=== PATIENT | female | born 1980 | race Caucasian/White ===

== ENCOUNTER 2016-07-03 20:18 | Emergency (ER) | payer OTHER ==
[~2016-07-03] VITALS: Ht 160 cm; Wt 81.6 kg
[~2016-07-03 20:18] MED LIST: TRIAMTERENE AND1 CAP PO
[2016-07-03 20:32] VITALS: BP 144/97
--- NOTE | 2016-07-03 23:00 | NUR ---
PATIENT PRESENTS TO ED WITH rt foot/ankle pain . PT DENIES N/V/D; SKIN IS PINK/WARM/DRY; AAOX4 WITH EVEN AND STEADY GAIT; LUNGS CLEAR BL; HR EVEN AND REGULAR; PT DENIES ANY FEVER, CP, SOB, OR COUGH AT THIS TIME; PATIENT STATES PAIN OF 7/10 AT THIS TIME; VSS; PATIENT POSITIONED FOR COMFORT; HOB ELEVATED; BEDRAILS UP X2; BED DOWN. ER MD MADE AWARE OF PT STATUS.
--- NOTE | 2016-07-03 23:03 | NUR ---
Joesph bond in [facility] - 07/03/16 at 2331 by MEDDM TO ER BED 8
[2016-07-03 23:27] VITALS: BP 144/97
--- NOTE | 2016-07-03 23:27 | NUR ---
Patient discharged with v/s stable. Written and verbal after care instructions given and explained. Patient alert, oriented and verbalized understanding of instructions. Ambulatory with steady gait. All questions addressed prior to discharge. ID band removed. Patient advised to follow up with PMD. Rx of motrin and norco given. Patient educated on indication of medication including possible reaction and side effects. Opportunity to ask questions provided and answered. crutch training provided.
== END 2016-07-03 23:27 | disposition home or self-care (01) ==
LOC: MED 20:18
DX: S93.491A Sprain of other ligament of right ankle, initial encounter (principal); I10 Essential (primary) hypertension; Z88.8 Allergy status to other drugs, medicaments and biological substances; Z90.49 Acquired absence of other specified parts of digestive tract; W18.42XA Slipping, tripping and stumbling without falling due to stepping into hole or opening, initial encounter; Y93.89 Activity, other specified; Y92.89 Other specified places as the place of occurrence of the external cause; Y99.8 Other external cause status

== ENCOUNTER 2017-09-29 00:13 | Emergency (ER) | payer OTHER ==
[~2017-09-29] VITALS: Ht 162.6 cm; Wt 86.2 kg
[~2017-09-29 00:13] MED LIST changes: +HYDR-3639 PO; -TRIAMTERENE AND1 CAP PO
[2017-09-29 00:24] VITALS: BP 150/76
--- NOTE | 2017-09-29 00:26 | NUR ---
TO LOBBY A/W BED, XRAY CHEST,AMB, VSS, ERMD NOTED
--- NOTE | 2017-09-29 00:30 | NUR ---
PT CAME IN TO ER WITH C/O COUGH. PT STATES SHE COUGHS SO MUCH SHE HAS N/V. LUNG SOUND ARE CLEAR BILATERAL HX MED. HTN. DENIES DIARRHEA; SKIN IS PINK/WARM/DRY; AAOX4 WITH EVEN AND STEADY GAIT; HR EVEN AND REGULAR; PT DENIES ANY FEVER, CP, SOB, AT THIS TIME; PATIENT STATES PAIN OF 0/10 AT THIS TIME; VSS; PATIENT POSITIONED FOR COMFORT; HOB ELEVATED; BEDRAILS UP X2; BED DOWN. ER MD MADE AWARE OF PT STATUS.
--- NOTE | 2017-09-29 01:18 | NUR ---
pt returned from xray to er bed 9 via wheel chair.
--- NOTE | 2017-09-29 01:33 | NUR ---
DR YAN AT BEDSIDE EVALUATING PT.
--- NOTE | 2017-09-29 02:00 | NUR ---
pt is resting in room, family at bedside.
[2017-09-29] MEDS ORDERED: DEXAMETHASONE 10 MG/ML VIAL IM ONE (02:40)
[2017-09-29 03:00] VITALS: BP 150/76
--- NOTE | 2017-09-29 03:00 | NUR ---
Patient discharged with v/s stable. Written and verbal after care instructions given and explained. Patient alert, oriented and verbalized understanding of instructions. Ambulatory with steady gait. All questions addressed prior to discharge. ID band removed. Patient advised to follow up with PMD. Rx of zithromax, prednisone, and mucinex were given. Patient educated on indication of medication including possible reaction and side effects. Opportunity to ask questions provided and answered.
== END 2017-09-29 03:00 | disposition home or self-care (01) ==
LOC: MED 00:13
DX: J40 Bronchitis, not specified as acute or chronic (principal); I10 Essential (primary) hypertension; Z79.899 Other long term (current) drug therapy; Z88.8 Allergy status to other drugs, medicaments and biological substances; Z91.041 Radiographic dye allergy status
CPT/HCPCS: 71045; 96372; 99283; J1100

== ENCOUNTER 2017-12-12 22:12 | Inpatient (IN) | payer OTHER ==
[~2017-12-12] VITALS: Ht 162.6 cm; Wt 96.6 kg
[2017-12-12 22:19] VITALS: BP 140/76
--- NOTE | 2017-12-12 22:19 | NUR ---
BIB WHEELCHAIR TO ER BED 7
[2017-12-12] MEDS ORDERED: NACL 0.9% 1,000 ML IV ONE (22:35)
[2017-12-12] MEDS ORDERED: MORPHINE SULFATE 4 MG/ML SYR IVP ONE (22:35)
[2017-12-12] MEDS ORDERED: ONDANSETRON 4 MG/2 ML VIAL IVP ONE (22:35)
--- NOTE | 2017-12-12 22:35 | NUR ---
PT PRESENTS TO ED WITH EPIGASTRIC CHEST PAIN WITH SOB X1 DAY. PT IS TACHY AT 117. CP 8/. PT IS A&OX4. LUNGS CLEAR BILAT. HEART EVEN AND REGULAR. RHYTHM IS SINUS TACHY. PT STATES NAUSEA WITHOUT VOMITING. POSITIONED IN BED WITH HOB ELEVATED. SIDE RAILS UP. ER MD AWARE. CONTINUE TO MONITOR.
[2017-12-12 23:32] LABS: HEMATOCRIT 43.2 % (36-48); HEMOGLOBIN 14.4 g/dL (12.0-16.0); MEAN CORPUSCULAR HEMOGLOBIN 28 pg (27-31); MEAN CORPUSCULAR HGB CONC 33 g/dL (33-37); MEAN CORPUSCULAR VOLUME 83.7 fL (80-94); PLATELET COUNT (AUTO) 328 K/uL (140-450); RED BLOOD CELL COUNT(AUTO) 5.16 MIL/uL (4.20-5.40)
[2017-12-12 23:43] LABS: ANION GAP 13.5 (8-16); CARBON DIOXIDE 26.9 mmol/L (21-32); CREATININE 0.9 mg/dL (0.6-1.3); POTASSIUM 3.4 mmol/L (3.5-5.1); WHITE BLOOD COUNT (AUTO) 20.5 K/uL (4.8-10.8)
[2017-12-12 23:44] LABS: LYMPHOCYTES % (MANUAL) 3 % (20-46); MONOCYTES % (MANUAL) 1 % (5-12)
[2017-12-12 23:49] LABS: ALBUMIN 3.8 g/dL (3.4-5.0); TOTAL BILIRUBIN 0.7 mg/dL (0.0-1.0)
[2017-12-12] MEDS ORDERED: PIPERACILLIN/TAZOBACTAM 3.375 GM in DEXTROSE 5% 50 ML IV ONE (23:55)
[2017-12-12] MEDS ORDERED: VANCOMYCIN 1,000 MG in DEXTROSE 5% 250 ML IV ONE (23:55)
[2017-12-13] MEDS ORDERED: PIPERACILLIN/TAZOBACTAM 3.375 GM VIAL IV ONE ×2 (00:08→05:09)
--- NOTE | 2017-12-13 00:32 | NUR ---
REPORT GIVEN AND CARE TRANSFERED TO [facility] ROOM 121A. TRANSFERED VIA GURNEY WITH VSS.
[2017-12-13] MEDS ORDERED: NACL 0.9% 1,000 ML IV ONE ×2 (01:10)
[2017-12-13 01:45] LABS: APPEARANCE,URINE CLEAR (CLEAR); BILIRUBIN,URINE NEGATIVE (NEGATIVE); BLOOD, URINE NEGATIVE (NEGATIVE); COLOR,URINE YELLOW (YELLOW); LEUKOCYTE ESTERASE ,URINE NEGATIVE (NEGATIVE); NITRITE, URINE NEGATIVE (NEGATIVE); PH,URINE 7.5 (5.0-9.0); UGLUCOSE NEGATIVE (NEGATIVE)
[2017-12-13] MEDS ORDERED: VANCOMYCIN 1,000 MG VIAL ONE (02:26)
[2017-12-13] MEDS ORDERED: NACL 0.9% 1,000 ML IV SCH (02:43)
[2017-12-13] MEDS ORDERED: ONDANSETRON 4 MG/2 ML VIAL IVP PRN (02:45)
[2017-12-13] MEDS ORDERED: ACETAMINOPHEN 325 MG TAB PO PRN (02:45)
[2017-12-13 03:20] VITALS: BP 99/56
--- NOTE | 2017-12-13 03:20 | NUR ---
RECEIVED REPORT FROM ER NURSE SETH AT BEDSIDE FOR CONTINUITY OF CARE. PT BROUGHT IN BY RAND. PT IV NOTED RFA 22G. PT HAS NO SOB NO S/S OF DISTRESS ON RA. PT AMBULATORY. BED LOWERED PT ORIENTED TO ROOM CALL LIGHT WITHIN REACH WILL CONTINUE TO MONITOR.
--- NOTE | 2017-12-13 03:30 | NUR ---
SETH ER NURSE STATED TO ADD 2L NS ORDERED PER SEPSIS PROTOCOL. EDITED NS ORDERED TO 2L WIDE OPEN.
[2017-12-13] MEDS ORDERED: PIPERACILLIN/TAZOBACTAM 3.375 GM in DEXTROSE 5% 50 ML IV SCH (05:00)
--- NOTE | 2017-12-13 06:29 | NUR ---
PT SLEEPING DECREASED HER FLUIDS TO 100ML/HR. BECAUSE IV KEEPS BEEPING AND TO PREVENT VEIN RUPTURE. WILL ENDORSE
--- NOTE | 2017-12-13 07:19 | NUR ---
ENDORSED REPORT TO DAYSHIFT NURSE AT BEDSIDE FOR CONTINUITY OF CARE.
--- NOTE | 2017-12-13 07:20 | NUR ---
RECEIVED REPORT FROM PM NURSE AT TH BEDSIDE. PT ON STRICT I&O. IV SITE RT FA 22 G, IVF INFUSING AT 100 ML/HR. PT AOX4. AMBULATORY. NO SIGN OF DISTRESS. VS NOTED NORMAL. DENIES ANY PAIN. CALL LIGHT WITHIN REACH.INFORMED PT TO USE CALL LIGHT FRO ANY HELP. VERBALIZED UNDERSTANDING. WILL CONTINUE TO MONITOR PT.
[2017-12-13 07:46] LABS: HEMATOCRIT 40.7 % (36-48); HEMOGLOBIN 13.2 g/dL (12.0-16.0); MEAN CORPUSCULAR HEMOGLOBIN 27 pg (27-31); MEAN CORPUSCULAR HGB CONC 32 g/dL (33-37); PLATELET COUNT (AUTO) 367 K/uL (140-450); RED BLOOD CELL COUNT(AUTO) 4.84 MIL/uL (4.20-5.40); RED CELL DISTRIBUTION WIDTH 14.3 % (11.6-13.7); WHITE BLOOD COUNT (AUTO) 22.1 K/uL (4.8-10.8)
[2017-12-13 08:00] VITALS: BP 138/74
--- NOTE | 2017-12-13 08:46 | NUR ---
CHECKED ON PT. REFUSED LEVONOX. INFORMED THAT ITS BLOOD THINNER, USE FOR PREVENTION OF BLOOD CLOT WITH PT ON BEDREST. DENIES, STATES SHE IS AMBULATORY, ABLE TO WALK. NO SIGN OF DISTRESS. WILL CONTINUE TO MONITOR PT.
[2017-12-13] MEDS: ENOXAPARIN 40 MG/0.4 ML SYR SUBQ SCH (09:00)
--- NOTE | 2017-12-13 09:03 | NUR ---
PATIENT HAS BEEN SCREENED AND CATEGORIZED HIGH NUTRITION RISK. PATIENT WILL BE SEEN WITHIN 1-2 DAYS OF ADMISSION. 12/13/17 12/14/[address]
[2017-12-13 09:15] LABS: LYMPHOCYTES % (MANUAL) 6 % (20-46); MONOCYTES % (MANUAL) 7 % (5-12)
[2017-12-13 12:00] VITALS: BP 112/67
--- NOTE | 2017-12-13 12:07 | NUR ---
12/13/17 RD INITIAL ASSESSMENT COMPLETED PLEASE REFER TO NUTRITION ASSESSMENT UNDER CARE ACTIVITY FOR ESTIMATED NUTRITIONAL NEEDS. 1. RECOMMEND NA 2G DIET TOLERATED. 2. RECOMMEND HEALTH SHAKES WITH EVERY MEAL IF LOW APPETITE PERSISTS. 3. RD TO FOLLOW-UP 5-7 DAYS, LOW RISK ARIANE FENG, RD
--- NOTE | 2017-12-13 12:18 | NUR ---
CM NOTE ADMISSION CHART REVIEW DONE. INITIAL REVIEW FAXED TO [facility] [phone] CLAUDIA # [phone]
--- NOTE | 2017-12-13 12:20 | NUR ---
CHECKED ON PT. DR CASTILLO VISITED PT. PUT ORDER FOR STOOL SPECIMEN COLLECTION FOR WBC, LEUKOCYTES AND CULTURE. PT HAS NO BM YET. HAT AND SPECIMEN CUP IN RESTROOM. INFORMED P[T TO NOTIFY WHEN SHE GOES TO RESTROOM. CALL LIGHT WITHIN REACH. VS NORMAL NOTED. PT ON NPO FOR COMPLETE US OF ABDOMEN PER DR RIVERO ORDER. NO SIGN OF DISTRESS. WILL CONTINUE TO MONITOR PT.
[2017-12-13] MEDS: PIPER/TAZO 3.375GM/D5W PREMIX 50 ML IV SCH ×2 (12:30→20:37)
--- NOTE | 2017-12-13 15:00 | NUR ---
CHECKED ON PT. SLEEPING AT THIS TIME. NO SIGN ON OF DISTRESS. WILL CONTINUE TO MONITOR PT.
[2017-12-13 16:00] VITALS: BP 113/74
--- NOTE | 2017-12-13 16:30 | NUR ---
CHECKED ON PT. LYING ON HER BED. VS NORMAL. COMPLETE ABD US DONE. NO SIGN OF DISTRESS. PT ASKING FOR SNACKS. INFORMED THAT PT IS ON 2GM NA DIET. VERBALISED UNDERSTANDING. WILL CONTINUE TO MONITOR PT.
--- NOTE | 2017-12-13 18:00 | NUR ---
PT SLEEPING ON HER BED. NO SIGN OF DISTRESS. WILL CONTINUE TO MONITOR PT.
--- NOTE | 2017-12-13 19:25 | NUR ---
PT SLEEPING ON HER BED. ENDORSED TO PM NURSE. PT IN STABLE CONDITION.
--- NOTE | 2017-12-13 19:26 | NUR ---
RECEIVED BEDSIDE REPORT FROM DAY SHIFT NURSE SITAL RN, PT STABLE, NO DISTRESS NOTED, IV TO R FA 22G, PATENT , INTACT, SL, PT ON ROOM AIR, NO SOB, PT DENIES ANY PAIN AT THIS MOMENT, FAMILY AT BEDSIDE, INITIAL ASSESSMENT DONE, ALL SAFETY PRECAUTION MET, WILL CONTINUE TO MONITOR.
[2017-12-13 20:00] VITALS: BP 117/72
--- NOTE | 2017-12-13 20:10 | NUR ---
CALLED DR. PEOPLES REGARDING PT BLOOD CULTURE CAME BACK POSITIVE FOR ANAEROBIC GRAM NEGATIVE RODS. STATED UNDERSTANDING AND TO ORDER REPEAT BLOOD CULTURE X2. WILL PUT IN ORDERS AND CONTINUE WITH ORDERS. Addendum: 12/14/17 at 0308 by Shaniqua Grande RN ALSO NOTIFIED DR. PEOPLES REGARDING DR. CASTILLO ORDER OF BOLUS, PT CURRENT LACTIC IS NORMAL, STATED TO WAIT FOR TOMORROW FOR DR. CASTILLO.
--- NOTE | 2017-12-13 20:37 | NUR ---
DUE MEDICATION ADMINISTERED, PT TOLERATED WELL, NO DISTRESS NOTED, CALL LIGHT WITHIN REACH, WILL CONTINUE TO MONITOR.
--- NOTE | 2017-12-13 21:00 | NUR ---
DR. RIVERO SEEN PT.
--- NOTE | 2017-12-13 23:40 | NUR ---
CHECKED ON PT, PT RESTING, NO DISTRESS NOTED, PT WATCHING MOVIES ON HER PHONE, STATED HAVING NO PAIN AT THIS MOMENT, V/S TAKEN, WNL, CALL LIGHT WITHIN REACH, WILL CONTINUE TO MONITOR.
[2017-12-14] VITALS (7 sets, daily range): BP systolic 94–124; BP diastolic 51–81
--- NOTE | 2017-12-14 01:56 | NUR ---
CHECKED ON PT, PT SLEEPING PRONATED, NO DISTRESS NOTED, CALL LIGHT WITHIN REACH, WILL CONTINUE TO MONITOR.
[2017-12-14] MEDS ORDERED: NACL 0.9% 2,000 ML IV ONE (02:43)
--- NOTE | 2017-12-14 02:44 | NUR ---
NS BOLUS 2L HELD, PT IS NOT INDICATED FOR BOLUS, PT LACTIC ACID IS NORMAL, PT IS NOT NPO AND HAS BEEN DRINKING WATER ADEQUATELY. ALREADY NOTIFIED DR. PEOPLES REGARDING BOLUS, STATED TO ASK DAY SHIFT TODAY. PT RESTING, NO DISTRESS NOTED, CALL LIGHT WITHIN REACH, WILL CONTINUE TO MONITOR.
--- NOTE | 2017-12-14 04:10 | NUR ---
CHECKED ON PT, PT RESTING, V/S TAKEN, WNL, NO DISTRESS NOTED, CALL LIGHT WITHIN REACH, WILL CONTINUE TO MONITOR.
[2017-12-14] MEDS: PIPER/TAZO 3.375GM/D5W PREMIX 50 ML IV SCH ×4 (06:12→23:48)
--- NOTE | 2017-12-14 07:10 | NUR ---
IV INFILTRATED, NEW IV INSERTED R WRIST 24G, PT TOLERATED WELL, OLD IV R FA 22G TAKEN OUT, CATH INTACT, CALL LIGHT WITHIN REACH, WILL CONTINUE TO MONITOR.
--- NOTE | 2017-12-14 07:20 | NUR ---
ENDORSED PT TO DAY SHIFT NURSE MARISSA RN, PT IN STABLE CONDITION, NO DISTRESS NOTED, CALL LIGHT WITHIN REACH.
--- NOTE | 2017-12-14 07:20 | NUR ---
RECEIVED REPORT FROM NIGHTSHIFT NURSE AT BEDSIDE. PATIENT IS AWAKE AT THIS TIME. NO DISTRESS NOTED. NO PAIN NOTED. PATIENT IS ALERT AND ORIENTED X4. PATIENT HAS AN IV NOTED ON HER RIGHT WRIST 24 G RUNNING ZOSYN. PATIENT ABLE TO AMBULATE. NO SIGNS OF SKIN BREAKDOWN. UPDATED BOARD IN PATIENT'S ROOM. LOWERED BED TO LOWEST SETTING. WILL CONTINUE TO MONITOR PATIENT.
[2017-12-14 07:59] LABS: BASOPHILS % (AUTO) 0.5 % (0.0-2.0); EOSINOPHILS # (AUTO) 0.4 K/uL (0-0.4); HEMATOCRIT 40.1 % (36-48); HEMOGLOBIN 13.3 g/dL (12.0-16.0); LYMPHOCYTES % (AUTO) 21.2 % (20.5-51.1); MEAN CORPUSCULAR HEMOGLOBIN 28 pg (27-31); MEAN CORPUSCULAR HGB CONC 33 g/dL (33-37); MEAN CORPUSCULAR VOLUME 84.7 fL (80-94); MONOCYTES % (AUTO) 10.5 % (1.7-9.3); NEUTROPHILS % (AUTO) 63.8 % (42.2-75.2); PLATELET COUNT (AUTO) 356 K/uL (140-450); RED BLOOD CELL COUNT(AUTO) 4.73 MIL/uL (4.20-5.40); WHITE BLOOD COUNT (AUTO) 9.3 K/uL (4.8-10.8)
[2017-12-14 08:09] LABS: ALBUMIN 2.8 g/dL (3.4-5.0); CARBON DIOXIDE 26.6 mmol/L (21-32); CREATININE 0.8 mg/dL (0.6-1.3); POTASSIUM 3.6 mmol/L (3.5-5.1); TOTAL BILIRUBIN 0.5 mg/dL (0.0-1.0)
[2017-12-14] MEDS: ENOXAPARIN 40 MG/0.4 ML SYR SUBQ SCH (09:00)
--- NOTE | 2017-12-14 09:13 | NUR ---
PATIENT REFUSED LOVENOX. EXPLAINED THE BENEFITS OF THE MEDICATION AND WHAT ITS INTENDED USE. PATIENT SAYS, "I AM GETTING UP AND WALKING JUST FINE. I DO NOT NEED LOVENOX". EXPLAINED
--- NOTE | 2017-12-14 12:53 | NUR ---
PATIENT IS RESTING AT THIS TIME. PATIENT'S FAMILY MEMBER AT BEDSIDE.
--- NOTE | 2017-12-14 14:29 | NUR ---
CM NOTE CONCURRENT REVIEW FAXED TO [facility] [phone] CLAUDIA # [phone]
--- NOTE | 2017-12-14 15:55 | NUR ---
PATIENT RESTING AT THIS TIME. NO DISTRESS NOTED. WILL CONTINUE TO MONITOR PATIENT
--- NOTE | 2017-12-14 18:39 | NUR ---
PATIENT RESTING AT THIS TIME. PATIENT'S FRIEND AT BEDSIDE. ALL NEEDS MET. WILL CONTINUE TO MONITOR PATIENT.
--- NOTE | 2017-12-14 19:18 | NUR ---
GAVE REPORT TO NIGHTSHIFT NURSE AT BEDSIDE. PATIENT IN STABLE CONDITION.
--- NOTE | 2017-12-14 19:19 | NUR ---
RECEIVED BEDSIDE REPORT FROM DAY SHIFT NURSE MARISSA RN, PT STABLE, NO DISTRESS NOTED, IV TO R WRIST 24G, PATENT, INTACT, PT ON ROOM AIR, NO SOB, PT STATE HAVING NO PAIN AT THIS MOMENT, FAMILY AT BEDSIDE, INITIAL ASSESSMENT DONE, ALL SAFETY PRECAUTION MET, WILL CONTINUE TO MONITOR.
--- NOTE | 2017-12-14 20:06 | NUR ---
PT RESTING, NO DISTRESS NOTED, CALL LIGHT WITHIN REACH, WILL CONTINUE TO MONITOR.
--- NOTE | 2017-12-14 23:55 | NUR ---
CHECKED ON PT, PT RESTING, NO DISTRESS NOTED, V/S TAKEN, WNL, CALL LIGHT WITHIN REACH, WILL CONTINUE TO MONITOR.
[2017-12-15] VITALS: BP 109/65
--- NOTE | 2017-12-15 02:10 | NUR ---
PT SLEEPING, NO DISTRESS NOTED, CALL LIGHT WITHIN REACH, WILL CONTINUE TO MONITOR.
[2017-12-15 04:00] VITALS: BP 115/78
--- NOTE | 2017-12-15 04:10 | NUR ---
CHECKED ON PT, PT RESTING, NO DISTRESS NOTED, V/S TAKEN, WNL, CALL LIGHT WITHIN REACH, WILL CONTINUE TO MONITOR.
[2017-12-15] MEDS: PIPER/TAZO 3.375GM/D5W PREMIX 50 ML IV SCH ×3 (05:42→17:01)
--- NOTE | 2017-12-15 05:43 | NUR ---
DUE MEDICATION ADMINISTERED, PT TOLERATED WELL, NO DISTRESS NOTED,CALL LIGHT WITHIN REACH, WILL CONTINUE TO MONITOR.
[2017-12-15 07:00] LABS: BASOPHILS # (AUTO) 0.1 K/uL (0.00-0.22); BASOPHILS % (AUTO) 0.8 % (0.0-2.0); EOSINOPHILS # (AUTO) 0.4 K/uL (0-0.4); EOSINOPHILS % (AUTO) 4.9 % (0.0-4.0); HEMATOCRIT 39.2 % (36-48); HEMOGLOBIN 13.2 g/dL (12.0-16.0); LYMPHOCYTES # (AUTO) 2.4 K/uL (2.5-16.5); LYMPHOCYTES % (AUTO) 26.9 % (20.5-51.1); MEAN CORPUSCULAR HEMOGLOBIN 28 pg (27-31); MEAN CORPUSCULAR HGB CONC 34 g/dL (33-37); MEAN CORPUSCULAR VOLUME 83.6 fL (80-94); MONOCYTES # (AUTO) 0.7 K/uL (0.8-1.0); MONOCYTES % (AUTO) 7.7 % (1.7-9.3); NEUTROPHILS # (AUTO) 5.3 K/uL (1.8-7.7); NEUTROPHILS % (AUTO) 59.7 % (42.2-75.2); PLATELET COUNT (AUTO) 352 K/uL (140-450); RED CELL DISTRIBUTION WIDTH 14.1 % (11.6-13.7); WHITE BLOOD COUNT (AUTO) 8.9 K/uL (4.8-10.8)
--- NOTE | 2017-12-15 07:18 | NUR ---
RECEIVED REPORT FROM NIGHTSHIFT NURSE AT BEDSIDE. PATIENT IS ASLEEP AT THIS TIME LAYING IN RIGHT LATERAL SIDE-LYING POSITION. PATIENT HAS AN IV NOTED ON HER RIGHT WRIST 24 G. NO DISTRESS NOTED WITH PATIENT. NO PAIN NOTED. ALL NEEDS MET. SAFETY MEASURED ENSURED. CALL LIGHT WITHIN REACH OF PATIENT. WILL CONTINUE TO MONITOR PATIENT
--- NOTE | 2017-12-15 07:18 | NUR ---
ENDORSED PT TO DAY SHIFT NURSE MARISSA LACEY, PT STABLE, NO DISTRESS NOTED, CALL LIGHT WITHIN REACH.
[2017-12-15 07:43] LABS: ALBUMIN 2.7 g/dL (3.4-5.0); ANION GAP 11.9 (8-16); CARBON DIOXIDE 25.6 mmol/L (21-32); CREATININE 0.9 mg/dL (0.6-1.3); POTASSIUM 3.5 mmol/L (3.5-5.1); TOTAL BILIRUBIN 0.4 mg/dL (0.0-1.0)
[2017-12-15 08:00] VITALS: BP 125/77
[2017-12-15] MEDS: ENOXAPARIN 40 MG/0.4 ML SYR SUBQ SCH (09:30)
--- NOTE | 2017-12-15 09:30 | NUR ---
PATIENT REFUSED LOVENOX. PATIENT IS ABLE TO WALK AROUND AND SAYS, "I DO NOT NEED IT".
--- NOTE | 2017-12-15 10:55 | NUR ---
PATIENT RESTING AT THIS TIME. NO DISTRESS NOTED.
--- NOTE | 2017-12-15 12:14 | NUR ---
CM NOTE CONCURRENT REVIEW FAXED TO [facility] [phone] CLAUDIA # [phone]
--- NOTE | 2017-12-15 12:50 | NUR ---
PATIENT TAKING A SHOWER AT THIS TIME. PATIENT IS SAFE AND STABLE.
--- NOTE | 2017-12-15 14:22 | NUR ---
PATIENT RESTING AT THIS TIME. NO DISTRESS NOTED.
[2017-12-15 16:27] VITALS: BP 123/83
[2017-12-15] MEDS ORDERED: LEVO500T98 PO (16:37)
--- NOTE | 2017-12-15 18:05 | NUR ---
DISCONTINUED PATIENT'S IV LINE WITH CATHETER STILL INTACT. PATIENT SIGNED ALL DISCHARGE INSTRUCTIONS AND IS AWARE OF PRESCRIPTIONS THAT DR. CASTILLO PHONED INTO HER PHARMACY. PATIENT GATHERED ALL BELONGINGS. CUT OFF PATIENT'S IDENTIFICATION BANDS. PATIENT LEFT IN STABLE CONDITION
--- NOTE | 2017-12-18 08:14 | NUR ---
FAXED DISCHARGE SUMMARY TO [facility] [phone]
== END 2017-12-15 18:05 | disposition home or self-care (01) | DRG 720 ==
LOC: MED 22:12 → MTU 12-13 02:45
PROVIDERS: ADMIT Hospitalist; ATTEND Hospitalist
DX: A41.50 Gram-negative sepsis, unspecified (principal); E66.01 Morbid (severe) obesity due to excess calories; I10 Essential (primary) hypertension; K57.90 Diverticulosis of intestine, part unspecified, without perforation or abscess without bleeding; R19.7 Diarrhea, unspecified; Z90.49 Acquired absence of other specified parts of digestive tract; Z88.8 Allergy status to other drugs, medicaments and biological substances; Z68.36 Body mass index [BMI] 36.0-36.9, adult
CPT/HCPCS: 36415; 71045; 76700; 80053; 81003; 82728; 83605; 83690; 83735; 84484; 85025; 87040; 87045; 87081; 87186; 89055; 93005; 96361; 96365; 96367; 99285; J1650; J2270; J2405; J2543; J3370; J7030; J7060; Q0092

== ENCOUNTER 2019-04-18 20:28 | Emergency (ER) | payer OTHER ==
[~2019-04-18] VITALS: Ht 162.6 cm; Wt 81.6 kg
[~2019-04-18 20:28] MED LIST changes: +LEVO500T98 PO
[2019-04-18 20:30] VITALS: BP 135/87
--- NOTE | 2019-04-18 20:30 | NUR ---
TO CHAIR Stone CARUSO
--- NOTE | 2019-04-18 20:45 | NUR ---
ASSESSMENT COMPLETED. PATIENT SITTING UP IN CHAIR WITH NO DISTRESS. NO NEEDS ADDRESSED. NOTE: BIB SELF REPORTING 3 DAYS OF SUPRAPUBIC ABD PRESSURE WITH INTERMITTENT CRAMPING. STATES TENDERNESS TO TOUCH. STATES NO URINARY BURNING, FREQUENCY OR FOUL SMELL. STATE TODAY SHE WAS HAVING A FLUSHED FEELING ACCOMPANIED BY NAUSEA. DENIES COUGH, FEVERS, CHEST PAIN, SOB. PMH: HTN
--- NOTE | 2019-04-18 21:07 | NUR ---
HARMONY MEJIA AT CHAIRSIDE.
[2019-04-18 21:10] LABS: APPEARANCE,URINE CLEAR (CLEAR); BILIRUBIN,URINE NEGATIVE (NEGATIVE); BLOOD, URINE NEGATIVE (NEGATIVE); COLOR,URINE YELLOW (YELLOW); LEUKOCYTE ESTERASE ,URINE 1+ (NEGATIVE); NITRITE, URINE NEGATIVE (NEGATIVE); UGLUCOSE NEGATIVE (NEGATIVE)
[2019-04-18 21:21] LABS: RBC,URINE 0-5 /HPF (0-5)
[2019-04-18 21:27] VITALS: BP 135/87
--- NOTE | 2019-04-18 21:27 | NUR ---
Patient discharged with v/s stable. Written and verbal after care instructions given and explained. Patient alert, oriented and verbalized understanding of instructions. Ambulatory with steady gait. All questions addressed prior to discharge. ID band removed. Patient advised to follow up with PMD. Rx of ibuprofen, nitrofurantoin, phenazopyridine given. Patient educated on indication of medication including possible reaction and side effects. Opportunity to ask questions provided and answered.
== END 2019-04-18 21:27 | disposition home or self-care (01) ==
LOC: MED 20:28
DX: N39.0 Urinary tract infection, site not specified (principal); I10 Essential (primary) hypertension; Z88.8 Allergy status to other drugs, medicaments and biological substances
CPT/HCPCS: 81001; 81025; 87086; 99283

== ENCOUNTER 2020-08-29 14:35 | Emergency (ER) | payer OTHER ==
[~2020-08-29] VITALS: Ht 162.6 cm; Wt 90.7 kg
[2020-08-29 14:39] VITALS: BP 140/83
--- NOTE | 2020-08-29 14:44 | NUR ---
Pt ambulated to ER bed 5 with steady gait.
--- NOTE | 2020-08-29 15:11 | NUR ---
39 YEAR OLD FEMALE COMPLAINS OF LEFT SIDED ABDOMINAL PAIN X 1 WEEK. PT STATES SHE FEELS CRAMPING SENSATION, AND HAD DYSURIA WELL. PT DENIES NAUSEA, VOMITTING, DIARRHEA. PT AOX4, BREATHING EVEN AND UNLABORED, SKIN WARM AND DRY. BED IN LOWEST POSITION, LOCKED, BED RAIL UPX1. PMH - HTN, GALLBLADER REMOVAL, C SECTION ALLERGIES - IODINE, COMPAZINE
[2020-08-29 15:52] LABS: BASOPHILS # (AUTO) 0.1 K/uL (0.00-0.22); BASOPHILS % (AUTO) 0.5 % (0.0-2.0); EOSINOPHILS # (AUTO) 0.2 K/uL (0-0.4); EOSINOPHILS % (AUTO) 1.2 % (0.0-4.0); HEMOGLOBIN 14.1 g/dL (12.0-16.0); MEAN CORPUSCULAR HEMOGLOBIN 29 pg (27-31); MEAN CORPUSCULAR HGB CONC 34 g/dL (33-37); MEAN CORPUSCULAR VOLUME 85.3 fL (80-94); MONOCYTES # (AUTO) 1.1 K/uL (0.8-1.0); MONOCYTES % (AUTO) 8.3 % (1.7-9.3); NEUTROPHILS # (AUTO) 10.2 K/uL (1.8-7.7); PLATELET COUNT (AUTO) 315 K/uL (140-450); RED BLOOD CELL COUNT(AUTO) 4.92 MIL/uL (4.20-5.40); RED CELL DISTRIBUTION WIDTH 14.4 % (11.6-13.7); WHITE BLOOD COUNT (AUTO) 13.6 K/uL (4.8-10.8)
[2020-08-29] MEDS ORDERED: AMOX1TAB8 PO (16:11)
[2020-08-29] MEDS ORDERED: ACET-8386 PO (16:11)
[2020-08-29 16:12] LABS: ALBUMIN 3.7 g/dL (3.4-5.0); ANION GAP 12.1 (8-16); CARBON DIOXIDE 26.7 mmol/L (21-32); CREATININE 0.7 mg/dL (0.6-1.3); POTASSIUM 3.8 mmol/L (3.5-5.1); TOTAL BILIRUBIN 0.6 mg/dL (0.0-1.0)
[2020-08-29 16:37] VITALS: BP 140/83
--- NOTE | 2020-08-29 16:37 | NUR ---
Patient discharged with v/s stable. Written and verbal after care instructions given FOR DIVERTICULITIS and explained. Patient alert, oriented and verbalized understanding of instructions. Ambulatory with steady gait. All questions addressed prior to discharge. ID band removed. Patient advised to follow up with PMD. Rx of AUGMENTIN 875MG PO BID, AND NORCO PO Q6-8H PRN PAIN given. Patient educated on indication of medication including possible reaction and side effects. Opportunity to ask questions provided and answered.
== END 2020-08-29 16:37 | disposition home or self-care (01) ==
LOC: MED 14:35
DX: K57.92 Diverticulitis of intestine, part unspecified, without perforation or abscess without bleeding (principal); I10 Essential (primary) hypertension; Z88.8 Allergy status to other drugs, medicaments and biological substances; Z79.899 Other long term (current) drug therapy
CPT/HCPCS: 36415; 80053; 81002; 81025; 83690; 85025; 99284

== ENCOUNTER 2020-12-21 05:55 | Emergency (ER) | payer OTHER ==
[~2020-12-21] VITALS: Ht 162.6 cm; Wt 90.7 kg
[~2020-12-21 05:55] MED LIST changes: +ACET-8386 PO; +AMOX1TAB8 PO
--- NOTE | 2020-12-21 06:00 | NUR ---
PT TAKEN TO ER BED 04
--- NOTE | 2020-12-21 06:08 | NUR ---
Dr. Acevedo examining patient.
[2020-12-21 06:12] VITALS: BP 137/79
--- NOTE | 2020-12-21 06:12 | NUR ---
C/C ABDOMINAL PAIN SINCE LASTNIGHT. PT REPORTS +PRESSURE AND PAIN, LOCATED MOSTLY IN THE RLQ UPON PALPATION. 6 MONTHS , DELIVERY. -N/V/D, FEVER, CHILLS, CP OR SOB. ACTIVE BOWEL SOUNDS, LAST BM YESTERDAY WITHOUT DIFFICULTY. MED HX: HTN ALLERGIES: PROCHLOPERAZINE, IV CONTRAST
--- NOTE | 2020-12-21 06:14 | NUR ---
PT AMBULATED TO RESTROOM AND BACK TO BED WITH STEADY AND EVEN GAIT.
[2020-12-21] MEDS ORDERED: KETOROLAC 30 MG/ML VIAL IM ONE (06:15)
--- NOTE | 2020-12-21 06:25 | NUR ---
22 G IV EST TO LEFT HAND. LABS DRAWN AND WALKED TO LAB BY CONI STACY.
--- NOTE | 2020-12-21 06:27 | NUR ---
PT CURRENTLY REFUSING PAIN MEDICATION. WILL MONITOR.
--- NOTE | 2020-12-21 06:41 | NUR ---
PT TAKEN TO CT VIA W.C.
[2020-12-21 06:43] LABS: BASOPHILS # (AUTO) 0.1 K/uL (0.00-0.22); BASOPHILS % (AUTO) 0.9 % (0.0-2.0); EOSINOPHILS # (AUTO) 0.4 K/uL (0-0.4); EOSINOPHILS % (AUTO) 4.6 % (0.0-4.0); HEMATOCRIT 43.1 % (36-48); HEMOGLOBIN 14.6 g/dL (12.0-16.0); LYMPHOCYTES # (AUTO) 2.5 K/uL (2.5-16.5); LYMPHOCYTES % (AUTO) 31.6 % (20.5-51.1); MEAN CORPUSCULAR HEMOGLOBIN 29 pg (27-31); MEAN CORPUSCULAR HGB CONC 34 g/dL (33-37); MONOCYTES # (AUTO) 0.7 K/uL (0.8-1.0); MONOCYTES % (AUTO) 8.3 % (1.7-9.3); NEUTROPHILS # (AUTO) 4.4 K/uL (1.8-7.7); NEUTROPHILS % (AUTO) 54.6 % (42.2-75.2); PLATELET COUNT (AUTO) 342 K/uL (140-450); RED BLOOD CELL COUNT(AUTO) 5.07 MIL/uL (4.20-5.40); RED CELL DISTRIBUTION WIDTH 14.1 % (11.6-13.7)
--- NOTE | 2020-12-21 06:51 | NUR ---
PT RETURNED FROM CT.
--- NOTE | 2020-12-21 07:11 | NUR ---
REPORT GIVEN TO DEEPTHI CUEVAS FOR CONTINUITY OF CARE.
--- NOTE | 2020-12-21 07:12 | NUR ---
REPORT AND CONTINUATION OF CARE RECEIVED FROM DEEPTHI THAKKAR.
--- NOTE | 2020-12-21 08:30 | NUR ---
OFFERED PATIENT SNACKS OR WATER, PT DECLINED. STATED SHE IS COMFORTABLE.
[2020-12-21 08:34] LABS: BILIRUBIN,URINE NEGATIVE (NEGATIVE); BLOOD, URINE NEGATIVE (NEGATIVE); COLOR,URINE ORANGE (YELLOW); LEUKOCYTE ESTERASE ,URINE TRACE (NEGATIVE); NITRITE, URINE NEGATIVE (NEGATIVE); PH,URINE 6.5 (5.0-9.0); UGLUCOSE NEGATIVE (NEGATIVE)
[2020-12-21 08:57] LABS: APPEARANCE,URINE CLEAR (CLEAR); RBC,URINE 0-5 /HPF (0-5); WBC,URINE 0-5 /HPF (0-5)
[2020-12-21 09:39] LABS: ANION GAP 16.4 (8-16); CARBON DIOXIDE 22.7 mmol/L (21-32); CREATININE 0.7 mg/dL (0.6-1.3); POTASSIUM 4.1 mmol/L (3.5-5.1)
[2020-12-21 09:46] LABS: ALBUMIN 3.5 g/dL (3.4-5.0); TOTAL BILIRUBIN 0.4 mg/dL (0.0-1.0)
[2020-12-21] MEDS ORDERED: METR500T1 PO (10:20)
[2020-12-21] MEDS ORDERED: BEN10 PO (10:20)
[2020-12-21] MEDS ORDERED: CIPR500T4 PO (10:20)
[2020-12-21 10:40] VITALS: BP 127/72
--- NOTE | 2020-12-21 10:47 | NUR ---
Patient discharged with v/s stable. Written and verbal after care instructions given and explained. Patient alert, oriented and verbalized understanding of instructions. Ambulatory with steady gait. All questions addressed prior to discharge. ID band removed. Patient advised to follow up with PMD. Rx of BETY MILLER FLAYGL given. Patient educated on indication of medication including possible reaction and side effects. Opportunity to ask questions provided and answered.
== END 2020-12-21 10:47 | disposition home or self-care (01) ==
LOC: MED 05:55
DX: K57.92 Diverticulitis of intestine, part unspecified, without perforation or abscess without bleeding (principal); N39.0 Urinary tract infection, site not specified; I10 Essential (primary) hypertension; Z90.49 Acquired absence of other specified parts of digestive tract; Z98.890 Other specified postprocedural states; Z79.899 Other long term (current) drug therapy; Z88.8 Allergy status to other drugs, medicaments and biological substances
CPT/HCPCS: 36415; 80053; 81001; 81025; 83690; 85025; 99284; J1885

== ENCOUNTER 2024-01-12 12:57 | Emergency (ER) | payer OTHER ==
[~2024-01-12] VITALS: Ht 160 cm; Wt 95.0 kg
[~2024-01-12 12:57] MED LIST changes: -ACET-8386 PO; +ACET-8905 PO; +AMOX-1230 PO; -AMOX1TAB8 PO; +BEN10 PO; +CIPR500T4 PO; +LEVO-481 PO; -LEVO500T98 PO; +METR500T1 PO
[2024-01-12 13:09] VITALS: BP 138/92; PULSE 120; RESP 16; TEMP 98.1; O2SAT 96
[2024-01-12 14:10] LABS: FLU A ANTIGEN negative (NEGATIVE); FLU B ANTIGEN NEGATIVE (NEGATIVE)
[2024-01-12] MEDS ORDERED: ONDA-188 SL (15:34)
[2024-01-12] MEDS: IBUPROFEN 600 MG TAB PO ONE (16:00)
[2024-01-12] MEDS: ONDANSETRON 4 MG ODT PO ONE (16:00)
[2024-01-12] MEDS ORDERED: ONDANSETRON 4 MG ODT ONE (16:23)
[2024-01-12] MEDS ORDERED: IBUPROFEN 600 MG TAB ONE (16:23)
[2024-01-12 16:28] VITALS: BP 132/70; PULSE 98; RESP 20; TEMP 98.9; O2SAT 98
== END 2024-01-12 16:30 | disposition home or self-care (01) ==
LOC: MED 12:57
DX: J02.8 Acute pharyngitis due to other specified organisms (principal); B97.89 Other viral agents as the cause of diseases classified elsewhere; Z20.822 Contact with and (suspected) exposure to COVID-19; R00.0 Tachycardia, unspecified; I10 Essential (primary) hypertension; E78.00 Pure hypercholesterolemia, unspecified; Z90.49 Acquired absence of other specified parts of digestive tract; Z98.890 Other specified postprocedural states; Z79.899 Other long term (current) drug therapy; Z88.8 Allergy status to other drugs, medicaments and biological substances
CPT/HCPCS: 87081; 87426; 87804; 99283; Q0162